=== PATIENT | female | born 1950 | race Caucasian/White ===

== ENCOUNTER → 2023-04-23 | Outpatient (REF) | payer OTHER ==
[2023-04-23 18:38] LABS: BASO % 0.2 % (0.0-1.0); EOS # 0.1 10^3/uL (0.0-0.5); HEMATOCRIT 38.6 % (36.0-47.0); LYMPH # 1.2 10^3/uL (1.5-5.0); LYMPH % 20.4 % (24.0-44.0); MEAN CORPUSCULAR HEMOGLOBIN 25.9 pg (27.0-33.0); MEAN CORPUSCULAR HGB CONC 31.1 g/dl (32.0-36.5); MEAN CORPUSCULAR VOLUME 83.2 fl (80.0-96.0); MONO # 0.3 10^3/uL (0.0-0.8); MONO % 4.5 % (2.0-8.0); NEUTROPHILS # 4.4 10^3/uL (1.5-8.5); NEUTROPHILS % 73.6 % (36.0-66.0); PLATELET COUNT, AUTOMATED 261 10^3/uL (150-450); RED BLOOD COUNT 4.64 10^6/uL (4.00-5.40)
[2023-04-23 18:53] LABS: APPEARANCE, URINE CLOUDY (CLEAR); BACTERIA, URINE AUTO NEGATIVE (NEGATIVE); BILIRUBIN, URINE AUTO NEGATIVE (NEGATIVE); BLOOD, URINE BLOOD NEGATIVE (NEGATIVE); COLOR, URINE AMBER (YELLOW); GLUCOSE, URINE (UA) AUTO NEGATIVE (NEGATIVE); KETONE, URINE AUTO NEGATIVE (NEGATIVE); LEUKOCYTE ESTERASE, URINE AUTO NEGATIVE (NEGATIVE); MUCUS, URINE SMALL (NEGATIVE); NITRITE, URINE AUTO NEGATIVE (NEGATIVE); PROTEIN, URINE AUTO NEGATIVE (NEGATIVE); RBC, URINE AUTO 1 /HPF (0-3); SPECIFIC GRAVITY URINE AUTO 1.015 (1.002-1.035); SQUAMOUS EPITHELIAL CELL UR AU 0 /HPF (0-6); TRANSITIONAL EPITHELIAL AUTO <1 /HPF; UROBILINOGEN, URINE AUTO 0.2 mg/dL (0.0-2.0); WBC, URINE AUTO 2 /HPF (0-3)
[2023-04-23 18:57] LABS: TOTAL PROTEIN,RANDOM URINE 9.3 MG/DL (0.0-14.0)
[2023-04-23 19:01] LABS: CREATININE,RANDOM URINE 61.8 MG/DL
[2023-04-23 19:02] LABS: C REACTIVE PROTEIN QUANTITATIV 2.4 MG/DL (<1.0); MAGNESIUM LEVEL 2.2 MG/DL (1.8-2.4)
[2023-04-23 19:04] LABS: COMPLEMENT C3 135.9 MG/DL (90.0-170.0); COMPLEMENT C4 22.7 MG/DL (12-36); PERCENT SATURATION 7.8 % (13.2-45.0)
[2023-04-23 19:05] LABS: ERYTHROCYTE SEDIMENTATION RATE 83 mm/hr (0-30); TOTAL 25(OH) VITAMIN D 50.1 NG/ML (20.0-100.0)
== END ==
LOC: M SFHCRHEU 14:29
PROVIDERS: ATTEND Internal Medicine
DX: R76.8 Other specified abnormal immunological findings in serum (principal); M25.50 Pain in unspecified joint; M79.10 Myalgia, unspecified site